=== PATIENT | male | born 1940 | race Caucasian/White ===

== ENCOUNTER 2020-12-30 00:32 | Emergency (ER) | payer OTHER ==
[~2020-12-30] VITALS: Ht 170.2 cm; Wt 74.8 kg
[2020-12-30] MEDS ORDERED: ASA81BEC PO (00:44)
[2020-12-30] MEDS ORDERED: AVAPRO 150 MG150 M1 PO (00:45)
[2020-12-30 03:52] VITALS: BP 137/74
== END 2020-12-30 04:10 | disposition home or self-care (01) ==
LOC: ER 00:32
DX: S06.0X0A Concussion without loss of consciousness, initial encounter (principal); S01.81XA Laceration without foreign body of other part of head, initial encounter; S51.812A Laceration without foreign body of left forearm, initial encounter; S50.02XA Contusion of left elbow, initial encounter; S40.012A Contusion of left shoulder, initial encounter; S60.221A Contusion of right hand, initial encounter; I10 Essential (primary) hypertension; Z79.82 Long term (current) use of aspirin; Z79.899 Other long term (current) drug therapy; W18.39XA Other fall on same level, initial encounter; Y93.89 Activity, other specified; Y92.89 Other specified places as the place of occurrence of the external cause; Y99.8 Other external cause status